=== PATIENT | female | born 1980 | race Two or more races ===

== ENCOUNTER 2022-09-11 21:06 | Emergency (ER) | payer OTHER ==
[~2022-09-11] VITALS: Ht 175.3 cm; Wt 79.4 kg
[2022-09-12] MEDS ORDERED: PYRIDIUM DS200 MG PO (00:43)
[2022-09-12] MEDS ORDERED: CEPHALEXIN500 MG PO (00:43)
== END 2022-09-12 00:54 ==
LOC: ER 21:06
DX: N30.80 Other cystitis without hematuria (principal); R30.0 Dysuria

== ENCOUNTER 2023-07-03 16:42 | Emergency (ER) | payer OTHER ==
[~2023-07-03] VITALS: Ht 175.3 cm; Wt 79.4 kg
[~2023-07-03 16:42] MED LIST: CEPHALEXIN500 MG PO; PYRIDIUM DS200 MG PO
[2023-07-03] MEDS ORDERED: FAMOTIDINE/PF 20 MG in 0.9 % SODIUM CHLORIDE 8 ML IV PUSH STA (17:24)
[2023-07-03] MEDS ORDERED: ONDANSETRON HCL 2 MG/ML VIAL IV ONE (17:30)
[2023-07-03] MEDS ORDERED: 0.9 % SODIUM CHLORIDE 1,000 ML IV SCH (17:30)
[2023-07-03] MEDS ORDERED: KETOROLAC TROMETHAMINE 30 MG VIAL IV ONE (17:30)
[2023-07-03 17:57] LABS: HEMOGLOBIN 15.6 g/dL (12.0-15.00); MEAN CELL VOLUME 89.6 fL (80.00-100.00); MEAN CORPUSCULAR HGB CONC 34.6 g/dl (32.0-36.0); PLATELET COUNT 195 K/uL (150-450); RED BLOOD COUNT 5.03 M/uL (4.00-6.00)
[2023-07-03 19:00] LABS: ALBUMIN 3.6 gm/dL (3.4-5.0); BILIRUBIN TOTAL 0.46 mg/dL (0.3-1.2); BILIRUBIN,CONJUGATED 0.1 mg/dL (0.0-0.2); BILIRUBIN,UNCONJUGATED 0.36 mg/dL (0.0-0.6); CALCIUM 8.9 mg/dL (8.5-10.1); CREATININE SERUM 0.76 mg/dL (0.55-1.02); GFR 83.46; GLOBULINA 4.2 G/DL (2.4-3.5); POTASSIUM 3.58 mEq/L (3.5-5.1); TOTAL PROTEIN 7.8 gm/dL (6.4-8.2)
[2023-07-03] MEDS ORDERED: PEPCID AC20 MG PO (20:40)
[2023-07-03] MEDS ORDERED: CARAFATE1 GM PO (20:40)
== END 2023-07-03 20:59 | disposition home or self-care (01) ==
LOC: ER 16:42
PROVIDERS: General Practice
DX: R10.11 Right upper quadrant pain (principal); R10.9 Unspecified abdominal pain

== ENCOUNTER 2024-03-14 07:46 | Outpatient (CLI) | payer OTHER ==
[~2024-03-14 07:46] MED LIST changes: +CARAFATE1 GM PO; +PEPCID AC20 MG PO
== END 2024-03-14 08:03 | disposition home or self-care (01) ==
LOC: MAMO-SONO 07:46
PROVIDERS: ATTEND Obstetrics & Gynecology
DX: R10.2 Pelvic and perineal pain (principal); N60.19 Diffuse cystic mastopathy of unspecified breast; N63 Unspecified lump in breast; N64.4 Mastodynia; R92.1 Mammographic calcification found on diagnostic imaging of breast; R92.0 Mammographic microcalcification found on diagnostic imaging of breast

== ENCOUNTER 2025-04-04 11:25 | Outpatient (CLI) | payer OTHER | END 2025-04-04 11:39 | disposition home or self-care (01) | LOC: RAD 11:25 | PROVIDERS: ATTEND Chiropractor | DX: M54.2 Cervicalgia (principal); M54.6 Pain in thoracic spine; M54.50 Low back pain, unspecified ==